=== PATIENT | female | born 1970 | race Two or more races ===

== ENCOUNTER 2016-11-22 10:03 | Emergency (ER) | payer MEDICAID ==
[~2016-11-22] VITALS: Ht 172.7 cm; Wt 68.0 kg
[2016-11-22 10:14] VITALS: BP 126/72
== END 2016-11-22 10:51 | disposition home or self-care (01) ==
LOC: ER 10:10 → EDSEX 10:10 → ER 10:51
DX: H93.13 Tinnitus, bilateral (principal); H91.93 Unspecified hearing loss, bilateral; R49.9 Unspecified voice and resonance disorder
CPT/HCPCS: A4606; Z7610

== ENCOUNTER 2017-08-25 12:28 | Emergency (ER) | payer MEDICAID ==
[~2017-08-25] VITALS: Ht 172.7 cm; Wt 70.3 kg
[2017-08-25 12:28] VITALS: BP 112/65
== END 2017-08-25 14:31 | disposition home or self-care (01) ==
LOC: ER 12:30
DX: A60.04 Herpesviral vulvovaginitis (principal)
CPT/HCPCS: 99283; A4606; Z7610

== ENCOUNTER 2017-10-25 10:25 | Emergency (ER) | payer MEDICAID, OTHER ==
[~2017-10-25] VITALS: Ht 172.7 cm; Wt 81.6 kg
[2017-10-25 10:38] VITALS: BP 117/65
== END 2017-10-25 10:59 | disposition home or self-care (01) ==
LOC: ER 10:29
DX: L73.1 Pseudofolliculitis barbae (principal)
CPT/HCPCS: A4606; Z7610

== ENCOUNTER 2017-10-30 14:25 | Emergency (ER) | payer MEDICAID ==
[~2017-10-30] VITALS: Ht 172.7 cm; Wt 72.6 kg
--- NOTE | 2017-10-30 14:35 | NUR ---
PATIENT PRESENTS TO ER STATING "I DON'T FEEL GOOD, I FEEL DEPRESSED AND ANXIOUS". I MADE AN APPT W/ A PSYCHIATRIST AND APPT WILL BE ON NOVEMBER. PATIENT IS CALM AND COOPERATIVE. BREATHING EVEN AND UNLABORED. NO SOB, NAD, VITALS STABLE. SAFETY AND COMFORT MEASURES IN PLACE. AWAITING MD ORDERS.
--- NOTE | 2017-10-30 15:18 | NUR ---
Patient discharged to home in stable condition. Written and verbal after care instructions given. Patient verbalizes understanding of instruction.
[2017-10-30 15:19] VITALS: BP 140/80
== END 2017-10-30 15:20 | disposition home or self-care (01) ==
LOC: ER 14:26
DX: F41.8 Other specified anxiety disorders (principal)
CPT/HCPCS: 99284; A4606; Z7610

== ENCOUNTER 2018-07-29 11:14 | Emergency (ER) | payer MEDICAID ==
[~2018-07-29] VITALS: Ht 172.7 cm; Wt 69.9 kg
[2018-07-29 11:47] LABS: APPEARANCE,URINE Clear (CLEAR); BILIRUBIN,URINE Negative (NEGATIVE); BLOOD, URINE Negative Ery/uL (NEGATIVE); COLOR,URINE Yellow (YELLOW); KETONES,URINE Negative (NEGATIVE); LEUKOCYTE ESTERASE ,URINE Small (NEGATIVE); NITRITE, URINE Negative (NEGATIVE); PH,URINE 8.5 (5.0-8.0); PROTEIN,URINE Negative (NEGATIVE); UGLUCOSE Negative (NEGATIVE); UROBILINOGEN,URINE 0.2 EU/dL (0.2)
[2018-07-29 11:53] LABS: BASOPHILS % (AUTO) 0.4 % (0.0-2.0); EOSINOPHILS % (AUTO) 1.9 % (0.0-6.0); HEMATOCRIT 36 % (33-45); HEMOGLOBIN 12.5 g/dL (11.5-14.8); LYMPHOCYTES % (AUTO) 21.7 % (20.0-44.0); MEAN CORPUSCULAR HGB CONC 35 g/dl (31.0-36.0); MEAN CORPUSCULAR VOLUME 93 fL (82-100); MONOCYTES % (AUTO) 10.8 % (2.0-12.0); NEUTROPHILS # (AUTO) 5.9 /CMM (1.8-8.9); NEUTROPHILS % (AUTO) 65.2 % (43.0-81.0); PLATELET COUNT (AUTO) 193 /CMM (150-450); RED BLOOD CELL COUNT(AUTO) 3.83 MIL/uL (4.0-5.2)
[2018-07-29] MEDS ORDERED: KETOROLAC TROMETHAMINE 15 MG/ML VIAL ONE (11:53)
[2018-07-29] MEDS ORDERED: KETOROLAC TROMETHAMINE INJ 30 MG/ML VIAL IV ONE (12:00)
[2018-07-29 12:02] LABS: BACTERIA,URINE Few /HPF (None Seen); RBC,URINE NONE SEEN /HPF (0-2); SQUAMOUS EPITHELIAL CELL,UR Few /HPF (None Seen)
[2018-07-29 12:06] LABS: CALCIUM, SERUM 8.9 mg/dL (8.5-10.1); CREATININE 0.6 mg/dL (0.6-1.3); POTASSIUM 3.6 mmol/L (3.5-5.1)
[2018-07-29 12:11] LABS: ALBUMIN 3.6 g/dL (3.4-5.0); BILIRUBIN,DIRECT 0.1 mg/dL (0.0-0.2); BILIRUBIN,TOTAL 0.5 mg/dL (0.2-1.0); TOTAL PROTEIN, SERUM 7.5 g/dL (6.4-8.2)
--- NOTE | 2018-07-29 13:00 | NUR ---
Updated with plan of care- Await results/dispo. No obvious distress No acte changes
--- NOTE | 2018-07-29 14:45 | NUR ---
IV removed. Catheter intact and site benign. Pressure and 4x4 applied to site. No bleeding noted.Patient discharged to home in stable condition. Written and verbal after care instructions given. Patient verbalizes understanding of instruction.
[2018-07-29 14:46] VITALS: BP 103/65
== END 2018-07-29 14:47 | disposition home or self-care (01) ==
LOC: ER 11:22
DX: K57.92 Diverticulitis of intestine, part unspecified, without perforation or abscess without bleeding (principal); F32.9 Major depressive disorder, single episode, unspecified; F41.9 Anxiety disorder, unspecified
CPT/HCPCS: 36415; 74176; 80048; 80076; 81001; 83690; 84703; 85025; 87086; 96374; 99284; J1885; 81000-TC

== ENCOUNTER 2018-09-29 11:07 | Emergency (ER) | payer MEDICAID ==
[~2018-09-29] VITALS: Ht 172.7 cm; Wt 69.9 kg
[2018-09-29 11:21] VITALS: BP 108/63
[2018-09-29] MEDS ORDERED: LORAZEPAM 1 MG TABLET ONE (12:13)
[2018-09-29] MEDS ORDERED: LORAZEPAM 1 MG TABLET PO ONE (12:30)
== END 2018-09-29 12:24 | disposition home or self-care (01) ==
LOC: ER 11:08
DX: F41.1 Generalized anxiety disorder (principal); F32.9 Major depressive disorder, single episode, unspecified; Z60.2 Problems related to living alone

== ENCOUNTER 2018-10-11 12:01 | Emergency (ER) | payer MEDICAID ==
[~2018-10-11] VITALS: Ht 172.7 cm; Wt 68.9 kg
[2018-10-11 12:12] VITALS: BP 113/57
[2018-10-11 12:42] LABS: APPEARANCE,URINE Clear (CLEAR); BILIRUBIN,URINE Negative (NEGATIVE); BLOOD, URINE Negative Ery/uL (NEGATIVE); COLOR,URINE Yellow (YELLOW); KETONES,URINE Negative (NEGATIVE); LEUKOCYTE ESTERASE ,URINE Trace (NEGATIVE); NITRITE, URINE Negative (NEGATIVE); PROTEIN,URINE Negative (NEGATIVE); UGLUCOSE Negative (NEGATIVE); UROBILINOGEN,URINE 0.2 EU/dL (0.2)
[2018-10-11 12:44] LABS: BACTERIA,URINE Rare /HPF (None Seen); RBC,URINE 0-2 /HPF (0-2); SQUAMOUS EPITHELIAL CELL,UR Few /HPF (None Seen); WBC,URINE 0-2 /HPF (0-3)
[2018-10-11 12:51] LABS: BASOPHILS % (AUTO) 0.5 % (0.0-2.0); EOSINOPHILS % (AUTO) 1.8 % (0.0-6.0); HEMATOCRIT 41 % (33-45); HEMOGLOBIN 13.9 g/dL (11.5-14.8); LYMPHOCYTES # (AUTO) 1.9 /CMM (0.8-4.8); LYMPHOCYTES % (AUTO) 28.2 % (20.0-44.0); MEAN CORPUSCULAR HGB CONC 34 g/dl (31.0-36.0); MEAN CORPUSCULAR VOLUME 94 fL (82-100); MONOCYTES # (AUTO) 0.5 /CMM (0.1-1.30); MONOCYTES % (AUTO) 7.6 % (2.0-12.0); NEUTROPHILS # (AUTO) 4.2 /CMM (1.8-8.9); NEUTROPHILS % (AUTO) 61.9 % (43.0-81.0); PLATELET COUNT (AUTO) 246 /CMM (150-450); RED BLOOD CELL COUNT(AUTO) 4.31 MIL/uL (4.0-5.2); WHITE BLOOD COUNT (AUTO) 6.8 K/uL (4.3-11.0)
[2018-10-11 13:05] LABS: CALCIUM, SERUM 9.3 mg/dL (8.5-10.1); CREATININE 0.6 mg/dL (0.6-1.3); POTASSIUM 3.7 mmol/L (3.5-5.1)
[2018-10-11 13:10] LABS: ALBUMIN 3.8 g/dL (3.4-5.0); BILIRUBIN,TOTAL 0.4 mg/dL (0.2-1.0)
[2018-10-11] MEDS ORDERED: KETOROLAC TROMETHAMINE INJ 60 MG/2 ML VIAL IM ONE ×2 (13:12→13:30)
== END 2018-10-11 14:35 | disposition home or self-care (01) ==
LOC: ER 12:03
DX: N28.1 Cyst of kidney, acquired (principal); F32.9 Major depressive disorder, single episode, unspecified; F41.9 Anxiety disorder, unspecified; Z60.2 Problems related to living alone
CPT/HCPCS: 36415; 76770; 80053; 81001; 84703; 85025; 96372; 99284; J1885; 81000-TC

== ENCOUNTER 2019-03-01 17:45 | Emergency (ER) | payer MEDICAID ==
[~2019-03-01] VITALS: Ht 172.7 cm; Wt 72.6 kg
--- NOTE | 2019-03-01 18:10 | NUR ---
pt walked into emergency room for c/c L FLANK PAIN, SEVERE SUDDEN ONSET ON MONDAY, RELIEVED BY MONDAY, NOW PAIN pt going to bath room for urine sample will continue to monitor
[2019-03-01 18:37] LABS: APPEARANCE,URINE Clear (CLEAR); BILIRUBIN,URINE Negative (NEGATIVE); BLOOD, URINE Negative Ery/uL (NEGATIVE); COLOR,URINE Yellow (YELLOW); KETONES,URINE Trace (NEGATIVE); LEUKOCYTE ESTERASE ,URINE Negative (NEGATIVE); NITRITE, URINE Negative (NEGATIVE); PROTEIN,URINE Negative (NEGATIVE); UGLUCOSE Negative (NEGATIVE)
[2019-03-01] MEDS ORDERED: KETOROLAC TROMETHAMINE INJ 60 MG/2 ML VIAL IM ONE (19:00)
[2019-03-01 19:04] LABS: BACTERIA,URINE 1+ /HPF (None Seen)
[2019-03-01 19:05] LABS: RBC,URINE 0-2 /HPF (0-2); WBC,URINE 0-2 /HPF (0-3)
[2019-03-01] MEDS ORDERED: KETOROLAC TROMETHAMINE INJ 30 MG/ML VIAL ONE (19:24)
--- NOTE | 2019-03-01 20:21 | NUR ---
Patient discharged to home in stable condition. Written and verbal after care instructions given. Patient verbalizes understanding of instruction. Pt ambulatory with a steady gait
[2019-03-01 20:22] VITALS: BP 123/64
== END 2019-03-01 20:23 | disposition home or self-care (01) ==
LOC: ER 17:47
DX: K59.00 Constipation, unspecified (principal); F32.9 Major depressive disorder, single episode, unspecified; F41.9 Anxiety disorder, unspecified; Z60.2 Problems related to living alone
CPT/HCPCS: 74018; 81001; 84703; 96372; 99284; J1885; 81000-TC

== ENCOUNTER 2019-03-04 12:00 | Emergency (ER) | payer MEDICAID ==
[~2019-03-04] VITALS: Ht 172.7 cm; Wt 78.5 kg
--- NOTE | 2019-03-04 12:00 | NUR ---
"C/O LEFT FLANK PAIN X DAYS, -DYSURIA OR HEMATURIA" PT AAOX4, -SOB, NAD NTOED, VSS, PENDING MD DANIELLE
[2019-03-04 12:50] LABS: BASOPHILS % (AUTO) 0.7 % (0.0-2.0); EOSINOPHILS % (AUTO) 3.1 % (0.0-6.0); HEMATOCRIT 39 % (33-45); HEMOGLOBIN 13.1 g/dL (11.5-14.8); LYMPHOCYTES % (AUTO) 30.2 % (20.0-44.0); MEAN CORPUSCULAR HGB CONC 34 g/dl (31.0-36.0); MEAN CORPUSCULAR VOLUME 95 fL (82-100); MONOCYTES # (AUTO) 0.7 /CMM (0.1-1.30); MONOCYTES % (AUTO) 10.8 % (2.0-12.0); NEUTROPHILS # (AUTO) 3.6 /CMM (1.8-8.9); NEUTROPHILS % (AUTO) 55.2 % (43.0-81.0); PLATELET COUNT (AUTO) 232 /CMM (150-450); WHITE BLOOD COUNT (AUTO) 6.5 K/uL (4.3-11.0)
[2019-03-04] MEDS ORDERED: IV NS 0.9% 1,000 ML BAG IV ONE (13:00)
[2019-03-04 13:11] LABS: ALBUMIN 3.4 g/dL (3.4-5.0); BILIRUBIN,TOTAL 0.2 mg/dL (0.2-1.0); CALCIUM, SERUM 8.7 mg/dL (8.5-10.1); CREATININE 0.6 mg/dL (0.6-1.3); POTASSIUM 3.8 mmol/L (3.5-5.1); TOTAL PROTEIN, SERUM 7.5 g/dL (6.4-8.2)
[2019-03-04] MEDS ORDERED: CT SWABBABLE VALVE TRANS SET 1 EA INFUS.SET MC ONE (13:42)
[2019-03-04] MEDS ORDERED: IV NS 0.9% 250 ML IV ONE (13:42)
[2019-03-04] MEDS ORDERED: IOHEXOL-300 100 ML VIAL IV ONE (13:42)
--- NOTE | 2019-03-04 14:55 | NUR ---
Patient discharged to home in stable condition. Written and verbal after care instructions given. Patient verbalizes understanding of instruction. IV removed. Catheter intact and site benign. Pressure and 4x4 applied to site. No bleeding noted.
[2019-03-04 15:14] VITALS: BP 112/70
== END 2019-03-04 15:15 | disposition home or self-care (01) ==
LOC: ER 12:00
DX: K59.00 Constipation, unspecified (principal); N28.1 Cyst of kidney, acquired; F32.9 Major depressive disorder, single episode, unspecified; F41.9 Anxiety disorder, unspecified; Z60.2 Problems related to living alone
CPT/HCPCS: 36415; 74177; 80048; 80076; 84703; 85025; 99284; J7030; J7050; Q9967

== ENCOUNTER 2021-08-25 07:46 | Emergency (ER) | payer MEDICAID ==
[~2021-08-25] VITALS: Ht 172.7 cm; Wt 72.6 kg
--- NOTE | 2021-08-25 07:50 | NUR ---
BIBS FOR C/O L FOOT ANF ANKLE PAIN S/P FALL FROM STAIRS LAST WEEK ALSO W/ C/O DYSURIA X FEW DAYS. AMBULATORY, AAXO4, IN PAIN 11/24
--- NOTE | 2021-08-25 08:00 | NUR ---
AT BED SIDE
--- NOTE | 2021-08-25 08:15 | NUR ---
X-RAY TECH. AT BED SIDE
[2021-08-25 08:22] LABS: BILIRUBIN,URINE NEGATIVE (NEGATIVE); COLOR,URINE YELLOW (YELLOW); LEUKOCYTE ESTERASE ,URINE SMALL (NEGATIVE); NITRITE, URINE NEGATIVE (NEGATIVE); PROTEIN,URINE TRACE mg/dl (NEGATIVE); UGLUCOSE NEGATIVE (NEGATIVE); UROBILINOGEN,URINE 0.2 EU/dL (0.2)
[2021-08-25 09:02] LABS: RBC,URINE 21-50 /HPF (0-2); SQUAMOUS EPITHELIAL CELL,UR Moderate /HPF (None Seen)
[2021-08-25 09:03] LABS: BACTERIA,URINE Many /HPF (None Seen)
[2021-08-25] MEDS ORDERED: IBUP-1955 PO (09:20)
[2021-08-25] MEDS ORDERED: CEPH500C2 PO (09:20)
[2021-08-25] MEDS ORDERED: CEPHALEXIN MONOHYDRATE 500 MG CAPSULE PO ONE ×2 (09:23→09:30)
[2021-08-25 09:31] VITALS: BP 103/61
--- NOTE | 2021-08-25 09:31 | NUR ---
Patient discharged to home in stable condition. Written and verbal after care instructions given. Patient verbalizes understanding of instruction.
== END 2021-08-25 09:31 | disposition home or self-care (01) ==
LOC: ER 07:50
DX: S93.602A Unspecified sprain of left foot, initial encounter (principal); N39.0 Urinary tract infection, site not specified; F32.A Depression, unspecified; F41.9 Anxiety disorder, unspecified; Z60.2 Problems related to living alone; W10.9XXA Fall (on) (from) unspecified stairs and steps, initial encounter; Y93.89 Activity, other specified; Y92.89 Other specified places as the place of occurrence of the external cause; Y99.8 Other external cause status
CPT/HCPCS: 73610-TC; 73630-TC; 81001; 84703-TC; 87086-TC

== ENCOUNTER 2021-11-01 11:58 | Emergency (ER) | payer MEDICAID ==
[~2021-11-01] VITALS: Ht 172.7 cm; Wt 69.9 kg
[~2021-11-01 11:58] MED LIST: CEPH500C2 PO; IBUP-1955 PO
--- NOTE | 2021-11-01 12:27 | NUR ---
PT SELF PRESENTS TO ED C/O LOWER BACK PAIN SINCE THIS MORNING S/P BENDING OVER TRYING TO PUT IN HER BOOT. PT IS BEEN IN PAIN SINCE. 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 STABLE VITALS. AWAITING MD DANIELLE.
--- NOTE | 2021-11-01 12:36 | NUR ---
DR GOLDBERG AT BEDSIDE FOR EVAL.
[2021-11-01] MEDS ORDERED: KETOROLAC TROMETHAMINE 15 MG/ML VIAL ONE (12:54)
[2021-11-01] MEDS ORDERED: CYCLOBENZAPRINE 10 MG TABLET ONE (12:54)
[2021-11-01] MEDS ORDERED: MORPHINE SULFATE INJ 2 MG/ML DISP.SYRIN ONE (12:54)
[2021-11-01] MEDS ORDERED: KETOROLAC TROMETHAMINE INJ 60 MG/2 ML VIAL IM ONE (13:00)
[2021-11-01] MEDS ORDERED: MORPHINE SULFATE 8 MG/ML VIAL IM ONE (13:00)
[2021-11-01] MEDS ORDERED: CYCLOBENZAPRINE 10 MG TABLET PO ONE (13:00)
--- NOTE | 2021-11-01 13:07 | NUR ---
PT TO RADIOLOGY FOR LUMBAR SPINE CT SCAN [facility]IA [facility].
[2021-11-01] MEDS ORDERED: CYCL10TA9 PO (14:04)
[2021-11-01] MEDS ORDERED: OXYC5TAB3 PO (14:04)
[2021-11-01] MEDS ORDERED: NAPR-1192 PO (14:04)
[2021-11-01 15:04] VITALS: BP 118/78
--- NOTE | 2021-11-01 15:04 | NUR ---
Patient discharged to home in stable condition. Written and verbal after care instructions given. Patient verbalizes understanding of instruction.
== END 2021-11-01 15:04 | disposition home or self-care (01) ==
LOC: ER 12:30
DX: S39.012A Strain of muscle, fascia and tendon of lower back, initial encounter (principal); F32.A Depression, unspecified; F41.9 Anxiety disorder, unspecified; Z60.2 Problems related to living alone; Z79.899 Other long term (current) drug therapy; X58.XXXA Exposure to other specified factors, initial encounter; Y93.89 Activity, other specified; Y92.89 Other specified places as the place of occurrence of the external cause; Y99.8 Other external cause status
CPT/HCPCS: 99284; 72131; 96372 ×2; J2270 ×2; J1885

== ENCOUNTER 2023-05-01 06:23 | Emergency (ER) | payer MEDICAID ==
[~2023-05-01] VITALS: Ht 172.7 cm; Wt 72.6 kg
[~2023-05-01 06:23] MED LIST changes: +CYCL10TA9 PO; +NAPR-1192 PO; +OXYC5TAB3 PO
[2023-05-01 07:00] VITALS: TEMP 99.1
[2023-05-01] MEDS ORDERED: PRED50TA PO (08:17)
[2023-05-01] MEDS ORDERED: BENZ-13 PO (08:17)
[2023-05-01] MEDS ORDERED: AZIT250T PO (08:17)
[2023-05-01 08:32] VITALS: BP 115/80; O2SAT 97
== END 2023-05-01 08:38 | disposition home or self-care (01) ==
LOC: ER 06:26
DX: J40 Bronchitis, not specified as acute or chronic (principal); F32.A Depression, unspecified; F41.9 Anxiety disorder, unspecified; Z20.822 Contact with and (suspected) exposure to COVID-19; Z98.890 Other specified postprocedural states; Z79.899 Other long term (current) drug therapy; Z60.2 Problems related to living alone

== ENCOUNTER 2024-12-23 07:32 | Emergency (ER) | payer MEDICAID ==
[~2024-12-23] VITALS: Ht 172.7 cm; Wt 70.3 kg
[~2024-12-23 07:32] MED LIST changes: +AZIT250T PO; +BENZ-13 PO; +PRED50TA PO
[2024-12-23 07:33] VITALS: BP 111/69; TEMP 99.1
[2024-12-23] MEDS ORDERED: ACET-73 PO (08:21)
[2024-12-23] MEDS ORDERED: IBUP-1490 PO (08:21)
[2024-12-23] MEDS ORDERED: GUAI-946 PO (08:21)
[2024-12-23] MEDS ORDERED: ACETAMINOPHEN ES 500 MG TABLET ONE (08:25)
[2024-12-23] MEDS: ACETAMINOPHEN ES 500 MG TABLET PO ONE (08:28)
[2024-12-23 08:41] VITALS: O2SAT 100
== END 2024-12-23 08:44 | disposition home or self-care (01) ==
LOC: ER 07:39
DX: J11.08 Influenza due to unidentified influenza virus with specified pneumonia (principal); J12.82 Pneumonia due to coronavirus disease 2019; B97.89 Other viral agents as the cause of diseases classified elsewhere; Z79.1 Long term (current) use of non-steroidal anti-inflammatories (NSAID); Z79.52 Long term (current) use of systemic steroids; Z90.13 Acquired absence of bilateral breasts and nipples; Z20.822 Contact with and (suspected) exposure to COVID-19